=== PATIENT | male | born 1950 | race Caucasian/White ===

== ENCOUNTER 2025-03-02 18:27 | Emergency (ER) | payer MEDICARE, SELFPAY ==
[2025-03-02 18:42] VITALS: BP 116/74; PULSE 68; RESP 20; TEMP 37; O2SAT 95; BMI 26.7
--- NOTE | 2025-03-02 18:43 | ED.ANIMALBIT ---
HPI - Animal Bite General Chief Complaint: Animal Bite Stated Complaint: bite mel from home dog Time Seen by Provider: 03/02/25 18:43 Source: patient and family Mode of arrival: ambulatory Limitations: no limitations History of Present Illness ED Provider: Megha Tran APRN HPI narrative: 74 yo male with PMH of ADHD, right hand dominant here with dog bite to left wrist from family dog that is UTD with vaccines. This occurred just [place]. Tetanus UTD. Has some pain on the wrist. No redness, swelling, pain or fever. Related Data Previous Rx's ?Medication ?Instructions ?Recorded amoxicillin 875 mg-potassium 1 tab PO BID #10 tabs 03/02/25 clavulanate 125 mg tablet Allergies Allergy/AdvReac Type Severity Reaction Status Date / Time No Known Allergies Allergy Verified 03/02/25 18:42 Review of Systems Review of Systems: Yes all other systems are reviewed and are negative Constitutional: Constitutional: Reports no additional constitutional complaints, Denies body ache(s), Denies chills, Denies fever(s), Denies headache(s) and Denies weakness Eyes: Eyes: Reports no additional eye complaints and Denies change in vision ENT: Reports system reviewed and no additional complaints, except as documented, Denies dizziness, Denies headache(s), Denies nasal congestion, Denies nasal discharge and Denies neck pain Cardiovascular: Cardiovascular: Reports no additional cardiovascular complaints, Denies chest pain, Denies leg edema and Denies dyspnea Respiratory: Respiratory: Reports no additional respiratory complaints, Denies cough and Denies dyspnea Gastrointestinal: Gastrointestinal: Reports no additional gastrointestinal complaints, Denies abdominal pain, Denies diarrhea, Denies nausea and Denies vomiting Genitourinary: Genitourinary: Denies urinary incontinence Musculoskeletal: Musculoskeletal: Reports no additional musculoskeletal complaints, Denies back pain, Denies arthralgias, Denies joint swelling, Denies neck pain, Denies numbness and Denies tingling Integumentary/Breasts: Skin/Breast: Reports system reviewed and no additional complaints, except as docu, Denies rash and Reports wounds Neurologic: Reports system reviewed and no additional complaints, except as documented, Denies Abnormal speech present, Denies dizziness, Denies headache(s), Denies numbness, Denies tingling and Denies weakness [facility] Past Medical History Attestation statement: The following information was validated with the patient. Source: old records reviewed and nursing notes reviewed Social History Social History Advance Directives: No Advance Directives Information Provided: No Physical Exam ED Vital Signs: Vital Signs - 24 hr 03/02/25 18:42 Temperature 98.6 F Pulse Rate 68 Respiratory Rate 20 Blood Pressure 116/74 Pulse Oximetry 95 Oxygen Delivery Method Room Air BMI result Body Mass Index 26.7 Const General: cooperative, healthy appearing, comfortable and no acute distress Orientation/consciousness: patient oriented x3 Limitations: no limitations HENMT Head: Yes normal to inspection Ears: hearing grossly normal bilaterally General nose exam: Normal external nose present Face and sinus: Yes normal facial exam Mouth: Normal oral and palatal mucosa present Throat: Yes posterior oropharynx normal Eyes General: appearance normal, both eyes and all related structures Pupils: Equal, round and reactive pupils present Neck Neck: Yes normal visual inspection Chest Chest palpation & inspection: normal inspection of the chest Resp Effort & Inspection: normal respiratory effort Auscultation: clear to auscultation bilaterally Cardio Rate: regular rate Rhythm: regular rhythm Peripheral pulses: Peripheral pulses 2+ throughout GI Inspection: Yes normal to inspection Palpation (GI): Soft to palpation and nontender Auscultation: normal bowel sounds Back/Spine/Pelvis Thoracic/Lumbar Spine: thoracic and lumbar spine normal to inspection Skin General skin exam: no rashes or lesions noted Neuro General: patient oriented x3, no focal motor deficits and normal sensation to monofilament Cranial nerves: Yes Equal, round and reactive pupils present Cognition (Neuro): normal cognition Speech: No Abnormal speech present Gait exam (Neuro): Normal gait present Motor exam (neuro): 5/5 motor strength present throughout Extrem Other: Several puncture sites noted over the left volar wrist. Medical Decision Making Medical Decision Making MDM Narrative: 74 yo male with PMH of ADHD, right hand dominant here with dog bite to left wrist from family dog that is UTD with vaccines. This occurred just [place]. Tetanus UTD. Has some pain on the wrist. No redness, swelling, pain or fever Several puncture sites noted over the left volar wrist. Wound care provided, will send home with rx for antibiotic and return precautions Differential Diagnosis Differential Diagnoses: The differential diagnosis associated with the presentation includes animal bite Admission/Observation Consideration of admission/observation: Escalation of care including admission/observation considered Prescription Management I considered prescription management with: Antibiotic Discharge Plan Discharge Clinical Impression: Dog bite Patient Disposition: Home, Self-Care Instructions: Animal Bite (ED) Additional Instructions: Return for increasing redness, swelling or drainage Keep the wound clean, covered and dry Prescriptions: New amoxicillin-pot clavulanate 875-125 mg tablet 1 tab PO BID Qty: 10 0RF Referrals: ED Physician,Generic [Physician] - 1 week Interventions: ED Discharge Assessment Last Done: 03/02/25 18:57 Print Language: Austrian
--- NOTE | 2025-03-02 18:48 | PC.NURSE ---
wound care provided in ED prior to dc from triage
[2025-03-02 18:57] VITALS: BP 116/74; PULSE 68; RESP 20; TEMP 37; O2SAT 95
== END 2025-03-02 18:57 | disposition home or self-care (01) ==
PROVIDERS: Emergency Provider Internal Medicine
DX: S61.552A Open bite of left wrist, initial encounter (principal); W54.0XXA Bitten by dog, initial encounter; Y93.9 Activity, unspecified; Y92.019 Unspecified place in single-family (private) house as the place of occurrence of the external cause; Y99.9 Unspecified external cause status
CPT/HCPCS: 99282; 99283